=== PATIENT | female | born 1975 | race Caucasian/White ===

== ENCOUNTER 2021-08-23 07:42 | Day surgery (SDC) | payer OTHER ==
[2021-08-20 16:00] VITALS: BMI 25.4
[2021-08-23] MEDS ORDERED: Lidocaine 1% MPF 2 ML VIAL ONE (08:59)
[2021-08-23] MEDS ORDERED: Lidocaine 1% PF 5 ML VIAL ONE (10:25)
[2021-08-23] MEDS ORDERED: PROPOFOL 0 ML ONE (10:25)
[2021-08-23] MEDS ORDERED: PROPOFOL 20 ML ONE ×3 (10:27→11:17)
[2021-08-23] MEDS ORDERED: Glycopyrrolate 0.2 MG/ML 5 ML SYRINGE ONE (10:27)
[2021-08-23] MEDS ORDERED: Fentanyl 100 MCG/2 ML VIAL ONE (10:27)
== END 2021-08-23 11:52 | disposition home or self-care (01) ==
LOC: CSHSDC 07:42
PROVIDERS: ATTEND Internal Medicine Gastroenterology
PROC: 0DB68ZZ Excision of Stomach, Via Natural or Artificial Opening Endoscopic (ICD-10-PCS; principal; 2021-08-23)
PROC: 0DJD8ZZ Inspection of Lower Intestinal Tract, Via Natural or Artificial Opening Endoscopic (ICD-10-PCS; principal; 2021-08-23)
DX: Z12.11 Encounter for screening for malignant neoplasm of colon (principal); K28.9 Gastrojejunal ulcer, unspecified as acute or chronic, without hemorrhage or perforation; K29.70 Gastritis, unspecified, without bleeding; K21.9 Gastro-esophageal reflux disease without esophagitis; K64.9 Unspecified hemorrhoids; Z80.0 Family history of malignant neoplasm of digestive organs; E78.5 Hyperlipidemia, unspecified; F41.9 Anxiety disorder, unspecified
CPT/HCPCS: 88305; J2704; J3010